=== PATIENT | female | born 1985 | race Hispanic/Latino ===

== ENCOUNTER 2021-09-06 12:48 | Emergency (ER) | payer OTHER ==
[2021-09-06 13:14] VITALS: BP 115/80
[2021-09-06 13:30] VITALS: BP 107/73
[2021-09-06 14:00] VITALS: BP 108/80
[2021-09-06 14:30] VITALS: BP 123/68
[2021-09-06 15:22] LABS: URINE BILIRUBIN - DIPSTICK NEGATIVE (NEGATIVE); URINE BLOOD DIPSTICK NEGATIVE (NEGATIVE); URINE COLOR YELLOW; URINE GLUCOSE - DIPSTICK NEGATIVE (NEGATIVE); URINE KETONE NEGATIVE (NEGATIVE); URINE LEUK ESTERASE NEGATIVE (NEGATIVE); URINE PROTEIN - DIPSTICK NEGATIVE (NEG-TRACE); URINE SPECIFIC GRAVITY >=1.030; URINE UROBILINOGEN - DIPSTICK 0.2 E.U./dL (0.2)
[2021-09-06 15:30] LABS: URINE NITRITE - DIPSTICK NEGATIVE (Negative)
[2021-09-07 04:44] VITALS: BP 123/68
== END 2021-09-07 04:44 | disposition short-term general hospital (02) | DRG 563 ==
LOC: ED 12:48
PROVIDERS: Emergency Medicine
DX: S52.121A Displaced fracture of head of right radius, initial encounter for closed fracture (principal); W01.0XXA Fall on same level from slipping, tripping and stumbling without subsequent striking against object, initial encounter; Y92.89 Other specified places as the place of occurrence of the external cause; Y99.0 Civilian activity done for income or pay